=== PATIENT | female | born 1985 | race Asian ===

== ENCOUNTER 2017-07-29 20:40 | Emergency (ER) | payer OTHER ==
[2017-07-29 21:08] LABS: URINE HCG POC HCG POSITIVE (Negative)
== END 2017-07-29 23:09 | disposition home or self-care (01) ==
LOC: ER 20:40
DX: Z32.01 Encounter for pregnancy test, result positive (principal); M25.562 Pain in left knee
CPT/HCPCS: 81025; 93971; 99284-25

== ENCOUNTER 2018-03-10 09:47 | Inpatient (IN) | payer OTHER ==
[~2018-03-10] VITALS: Ht 152.4 cm; Wt 87.5 kg
[~2018-03-10 09:47] MED LIST: PNV1TABL25 PO
[2018-03-10] MEDS ORDERED: IV RINGERS,LACTATED 1000ML 1,000 ML IV SCH (10:00)
[2018-03-10] MEDS ORDERED: ACETAMINOPHEN 325 MG TABLET. PO PRN ×2 (10:00→19:00)
[2018-03-10] MEDS ORDERED: ONDANSETRON PF 4 MG/2 ML VIAL. IV PRN (10:00)
[2018-03-10] MEDS ORDERED: MAG HYDROX/ALUMINUM HYD/SIMETH 30 ML ORAL.SUSP PO PRN ×3 (10:00→19:00)
[2018-03-10 10:36] LABS: BARBITURATES NEG (NEG); BENZODIAZEPINES NEG (NEG); CANNABINOIDS NEG (NEG); COCAINE NEG (NEG); METHADONE NEG (NEG); OPIATES NEG (NEG); PHENCYCLIDINE NEG (NEG)
[2018-03-10 10:40] LABS: AMPHETAMINE/METHAMPHETAMINE NEG (NEG)
[2018-03-10 10:49] LABS: BILIRUBIN,URINE NEGATIVE (NEG); CLARITY,URINE CLEAR; COLOR,URINE YELLOW; NITRITE,URINE NEGATIVE (NEG); PROTEIN,URINE NEGATIVE (NEG-TRACE); UROBILINOGEN,URINE 0.2 mg/dL (0.2 mg/dL)
[2018-03-10 11:03] LABS: BACTERIA,URINE FEW /HPF (0-FEW); RBC,URINE 0 /HPF (0-2); SQUAMOUS EPITHELIAL CELL,UR MOD /LPF; WBC,URINE 0 /HPF (0-4)
[2018-03-10 11:29] LABS: BASO % 0 % (0-3); EOS # 0.1 x10^3/uL (0.0-0.7); EOS % 1 % (0-3); HEMATOCRIT 39.9 % (36.0-47.0); HEMOGLOBIN 13.4 g/dL (12.0-15.5); LYMPH # 1.7 x10^3/uL (1.0-4.8); LYMPH % 18 % (24-48); MEAN CORPUSCULAR HEMOGLOBIN 29 pg (25-35); MEAN CORPUSCULAR HGB CONC 34 g/dL (31-37); MEAN CORPUSCULAR VOLUME 87 fL (79-100); MONO # 0.8 x10^3/uL (0.0-1.1); MONO % 9 % (0-9); NEUT # 6.8 x10^3uL (1.8-7.7); NEUT % 72 % (31-73); PLATELET COUNT 258 x10^3/uL (140-400); WHITE BLOOD COUNT 9.4 x10^3/uL (4.0-11.0)
[2018-03-10 11:47] LABS: CREATININE 0.5 mg/dL (0.6-1.0); GFR 143.9; POTASSIUM 3.4 mmol/L (3.5-5.1)
[2018-03-10 11:53] LABS: ALBUMIN 2.3 g/dL (3.4-5.0); ALBUMIN/GLOBULIN RATIO 0.5 (1.0-1.7); TOTAL BILIRUBIN 0.4 mg/dL (0.2-1.0); TOTAL PROTEIN 6.8 g/dL (6.4-8.2); URIC ACID 4.9 mg/dL (2.6-6.0)
[2018-03-10] MEDS ORDERED: OXYTOCIN 30 UNIT/500 ML PREMIX 500 ML IV PRN ×2 (15:45→19:00)
[2018-03-10] MEDS ORDERED: AMPICILLIN SODIUM 2 GM in IV NORMAL SALINE 100ML 100 ML IV ONE (16:00)
[2018-03-10] MEDS ORDERED: 0.9 % SODIUM CHLORIDE 10 ML DISP.SYRIN. IV PRN ×2 (16:15→19:00)
[2018-03-10] MEDS ORDERED: CITRIC ACID/SODIUM CITRATE 30 ML SOLUTION. PO PRN (16:15)
[2018-03-10] MEDS ORDERED: BUTORPHANOL 2 MG/ML VIAL. IV PRN ×2 (16:15)
[2018-03-10] MEDS ORDERED: fentaNYL PF VIAL 100 MCG/2 ML VIAL IV PRN ×2 (16:15)
[2018-03-10] MEDS ORDERED: LIDOCAINE 1% PF 30 ML VIAL. INJ PRN (16:15)
[2018-03-10] MEDS ORDERED: TERBUTALINE 1 MG/ML VIAL. SQ PRN (16:15)
[2018-03-10] MEDS: IV RINGERS,LACTATED 1000ML 1,000 ML IV SCH (17:00)
--- NOTE | 2018-03-10 18:52 | PDOC1 ---
OB - History Hx of Present Ultrasounds: Normal mid trimester US Obstetrical Complications: None, Other (Previous C/C) Medical Complications: None Past Family/Social History * Past Medical, Surgical, Family and Obstetric Histories reviewed from chart. Blood Type: A+ Rubella: Immune GBS Status: Positive HBsAG: Negative OB - Chief Complaint & HPI Date of Admission: Date of Admission: Mar 10, 2018 at 09:47 Chief Complaint/History : 6 Para: 4 EDC: Mar 18, 2018 Reason for admission: active labor OB - Admission Exam Physical Exam Vitals: VS - Last 72 Hours, by Label Date Time Temp Pulse Resp B/P (MAP) Pulse Ox O2 Delivery O2 Flow Rate FiO2 03/10/18 17:27 Room Air HEENT: Normal, Nasal Mucosa Normal, Oropharynx Normal, Moist Membranes, Fontanelles Normal Heart: Regular Rate Lungs: Clear, Equal Abdomen: Gravid Extremities: Normal Pulses, No tenderness or swelling Reflexes: Normal Cervical Dilatation: 3cm Effacement: 50% Station: Ballotable Membranes: Intact Amniotic Fluid: Clear Heart Rate: Normal Accelerations: Accelerations Present Contractions on Admission: < 5 Minutes Apart Intensity: Moderate Assessment/Plan Assessment/Plan [facility] BRANDEN MCKEON MD Mar 10, 2018 18:52
--- NOTE | 2018-03-10 18:54 | PDOC ---
VAGINAL DELIVERY DATE DATE: 03/10/18 TIME: 18:52 : 6 Para: 4 EDC: Mar 18, 2018 PLACENTA: Spontaneous SEX: Male WEIGHT 6/8 Nuchal Cord: Yes, Times 1, Times 2, Tight Amniotic Fluid: Clear PAIN: Natural EPISIOTOMY: No EXTENSION: No EBL 300cc COMPLICATIONS None CONDITION Stable Signs of Intrauterine Infectio: None Shoulder Dystocia: No DIAGNOSIS [facility] BRANDEN Terry MD Mar 10, 2018 18:54
[2018-03-10] MEDS ORDERED: HYDROCORTISONE 1% TOPICAL OINTMENT 30GM TUBE. TP PRN (19:00)
[2018-03-10] MEDS ORDERED: MAGNESIUM HYDROXIDE 2,400 MG/30 ML ORAL.SUSP. PO PRN (19:00)
[2018-03-10] MEDS ORDERED: HYDROcodone/APAP 5/325MG 1 TAB TABLET PO PRN ×2 (19:00)
[2018-03-10] MEDS ORDERED: diphenhydrAMINE HCL 25 MG CAPSULE PO PRN (19:00)
[2018-03-10] MEDS ORDERED: SIMETHICONE 80 MG TAB.CHEW PO PRN (19:00)
[2018-03-10] MEDS ORDERED: PHENYLEPH/MINERAL OIL/PETROLAT RECTAL OINTMENT 28GM TUBE. RC PRN (19:00)
[2018-03-10] MEDS ORDERED: BENZOCAINE 20% TOPICAL AEROSOL SPRAY 57GM CAN. TP PRN (19:00)
[2018-03-10] MEDS ORDERED: ZOLPIDEM 5 MG TABLET. PO PRN (19:00)
[2018-03-10] MEDS: AMPICILLIN SODIUM 1 GM in IV NORMAL SALINE 50ML 50 ML IV SCH (20:00)
[2018-03-10] MEDS: IBUPROFEN 800 MG TABLET. PO PRN (20:49)
[2018-03-10 21:11] LABS: UR PROTEIN RD <4.0 mg/dL (Not Estab.)
[2018-03-10 21:30] VITALS: BP 129/91
[2018-03-10 23:16] VITALS: BP 139/93
[2018-03-11] MEDS: IV RINGERS,LACTATED 1000ML 1,000 ML IV SCH ×3 (01:00→17:00)
[2018-03-11] MEDS: AMPICILLIN SODIUM 1 GM in IV NORMAL SALINE 50ML 50 ML IV SCH ×7 (04:00→20:00)
[2018-03-11 06:29] VITALS: BP 105/69
[2018-03-11] MEDS ORDERED: FERROUS SULFATE 325 MG TABLET. PO SCH (08:00)
--- NOTE | 2018-03-11 08:31 | PDOC ---
OB Progress Note Date of Service 03/11/18 Time of Evaluation 0830 Notes Pt. feeling well. No complaints. Lab Laboratory Tests Test 03/10/18 10:05 03/10/18 10:45 03/11/18 04:15 Urine Collection Type Unknown Urine Color Yellow Urine Clarity Clear Urine pH 7.0 Urine Specific [place] <=1.005 Urine Protein <4.0 mg/dL (Not Estab.) Urine Glucose (UA) Negative mg/dL (NEG) Urine Ketones (Stick) Negative mg/dL (NEG) Urine Blood Small (NEG) Urine Nitrite Negative (NEG) Urine Bilirubin Negative (NEG) Urine Urobilinogen Dipstick 0.2 mg/dL (0.2 mg/dL) Urine Leukocyte Esterase Negative (NEG) Urine RBC 0 /HPF (0-2) Urine WBC 0 /HPF (0-4) Urine Squamous Epithelial Cells Mod /LPF Urine Bacteria Few /HPF (0-FEW) Urine Creatinine 13.6 mg/dL (Not Estab.) Urine Protein/Creatinine Ratio Comment mg/g creat (0-200) Urine Opiates Screen Neg (NEG) Urine Methadone Screen Neg (NEG) Urine Barbiturates Neg (NEG) Urine Phencyclidine Screen Neg (NEG) Urine Amphetamine/Methamphetamine Neg (NEG) Urine Benzodiazepines Screen Neg (NEG) Urine Cocaine Screen Neg (NEG) Urine Cannabinoids Screen Neg (NEG) Urine Ethyl Alcohol (NEG) White Blood Count 9.4 x10^3/uL (4.0-11.0) Red Blood Count 4.60 x10^6/uL (3.50-5.40) Hemoglobin 13.4 g/dL (12.0-15.5) Hematocrit 39.9 % (36.0-47.0) 36.5 % (36.0-47.0) Mean Corpuscular Volume 87 fL (79-100) Mean Corpuscular Hemoglobin 29 pg (25-35) Mean Corpuscular Hemoglobin Concent 34 g/dL (31-37) Red Cell Distribution Width 15.0 % (11.5-14.5) Platelet Count 258 x10^3/uL (140-400) Neutrophils (%) (Auto) 72 % (31-73) Lymphocytes (%) (Auto) 18 % (24-48) Monocytes (%) (Auto) 9 % (0-9) Eosinophils (%) (Auto) 1 % (0-3) Basophils (%) (Auto) 0 % (0-3) Neutrophils # (Auto) 6.8 x10^3uL (1.8-7.7) Lymphocytes # (Auto) 1.7 x10^3/uL (1.0-4.8) Monocytes # (Auto) 0.8 x10^3/uL (0.0-1.1) Eosinophils # (Auto) 0.1 x10^3/uL (0.0-0.7) Basophils # (Auto) 0.0 x10^3/uL (0.0-0.2) Sodium Level 138 mmol/L (136-145) Potassium Level 3.4 mmol/L (3.5-5.1) Chloride Level 103 mmol/L (98-107) Carbon Dioxide Level 24 mmol/L (21-32) Anion Gap 11 (6-14) Blood Urea Nitrogen 4 mg/dL (7-20) Creatinine 0.5 mg/dL (0.6-1.0) Estimated GFR (Cockcroft-Gault) 143.9 BUN/Creatinine Ratio 8 (6-20) Glucose Level 90 mg/dL (70-99) Uric Acid 4.9 mg/dL (2.6-6.0) Calcium Level 9.0 mg/dL (8.5-10.1) Total Bilirubin 0.4 mg/dL (0.2-1.0) Aspartate Amino Transf (AST/SGOT) 15 U/L (15-37) Alanine Aminotransferase (ALT/SGPT) 18 U/L (14-59) Alkaline Phosphatase 107 U/L (46-116) Total Protein 6.8 g/dL (6.4-8.2) Albumin 2.3 g/dL (3.4-5.0) Albumin/Globulin Ratio 0.5 (1.0-1.7) Laboratory Tests Test 03/10/18 10:05 03/10/18 10:45 03/11/18 04:15 Urine Collection Type Unknown Urine Color Yellow Urine Clarity Clear Urine pH 7.0 Urine Specific [place] <=1.005 Urine Protein <4.0 mg/dL (Not Estab.) Urine Glucose (UA) Negative mg/dL (NEG) Urine Ketones (Stick) Negative mg/dL (NEG) Urine Blood Small (NEG) Urine Nitrite Negative (NEG) Urine Bilirubin Negative (NEG) Urine Urobilinogen Dipstick 0.2 mg/dL (0.2 mg/dL) Urine Leukocyte Esterase Negative (NEG) Urine RBC 0 /HPF (0-2) Urine WBC 0 /HPF (0-4) Urine Squamous Epithelial Cells Mod /LPF Urine Bacteria Few /HPF (0-FEW) Urine Creatinine 13.6 mg/dL (Not Estab.) Urine Protein/Creatinine Ratio Comment mg/g creat (0-200) Urine Opiates Screen Neg (NEG) Urine Methadone Screen Neg (NEG) Urine Barbiturates Neg (NEG) Urine Phencyclidine Screen Neg (NEG) Urine Amphetamine/Methamphetamine Neg (NEG) Urine Benzodiazepines Screen Neg (NEG) Urine Cocaine Screen Neg (NEG) Urine Cannabinoids Screen Neg (NEG) Urine Ethyl Alcohol (NEG) White Blood Count 9.4 x10^3/uL (4.0-11.0) Red Blood Count 4.60 x10^6/uL (3.50-5.40) Hemoglobin 13.4 g/dL (12.0-15.5) Hematocrit 39.9 % (36.0-47.0) 36.5 % (36.0-47.0) Mean Corpuscular Volume 87 fL (79-100) Mean Corpuscular Hemoglobin 29 pg (25-35) Mean Corpuscular Hemoglobin Concent 34 g/dL (31-37) Red Cell Distribution Width 15.0 % (11.5-14.5) Platelet Count 258 x10^3/uL (140-400) Neutrophils (%) (Auto) 72 % (31-73) Lymphocytes (%) (Auto) 18 % (24-48) Monocytes (%) (Auto) 9 % (0-9) Eosinophils (%) (Auto) 1 % (0-3) Basophils (%) (Auto) 0 % (0-3) Neutrophils # (Auto) 6.8 x10^3uL (1.8-7.7) Lymphocytes # (Auto) 1.7 x10^3/uL (1.0-4.8) Monocytes # (Auto) 0.8 x10^3/uL (0.0-1.1) Eosinophils # (Auto) 0.1 x10^3/uL (0.0-0.7) Basophils # (Auto) 0.0 x10^3/uL (0.0-0.2) Sodium Level 138 mmol/L (136-145) Potassium Level 3.4 mmol/L (3.5-5.1) Chloride Level 103 mmol/L (98-107) Carbon Dioxide Level 24 mmol/L (21-32) Anion Gap 11 (6-14) Blood Urea Nitrogen 4 mg/dL (7-20) Creatinine 0.5 mg/dL (0.6-1.0) Estimated GFR (Cockcroft-Gault) 143.9 BUN/Creatinine Ratio 8 (6-20) Glucose Level 90 mg/dL (70-99) Uric Acid 4.9 mg/dL (2.6-6.0) Calcium Level 9.0 mg/dL (8.5-10.1) Total Bilirubin 0.4 mg/dL (0.2-1.0) Aspartate Amino Transf (AST/SGOT) 15 U/L (15-37) Alanine Aminotransferase (ALT/SGPT) 18 U/L (14-59) Alkaline Phosphatase 107 U/L (46-116) Total Protein 6.8 g/dL (6.4-8.2) Albumin 2.3 g/dL (3.4-5.0) Albumin/Globulin Ratio 0.5 (1.0-1.7) Medications Current Medications Ringer's Solution 1,000 ml @ 125 mls/hr Q8H IV Last administered on 03/10/18at 11:02; Start 03/10/18 at 10:00 Acetaminophen (Tylenol) 650 mg PRN Q6HRS PRN PO PAIN, TEMP > 100.5'F Last administered on 03/10/18at 10:37; Start 03/10/18 at 10:00; Stop 03/10/18 at 19:04 ; Status DC Al Hydroxide/Mg Hydroxide (Mylanta Plus Xs) 15 ml PRN Q4HRS PRN PO HEARTBURN / GAS; Start 03/10/18 at 10:00; Status Cancel Ondansetron HCl (Zofran) 4 mg PRN Q6HRS PRN IV NAUSEA; Start 03/10/18 at 10:00 Ampicillin Sodium 2 gm/Sodium Chloride 100 ml @ 200 mls/hr 1X ONCE IV Last administered on 03/10/18at 15:49; Start 03/10/18 at 16:00; Stop 03/10/18 at 16:29 ; Status DC Ampicillin Sodium 1 gm/Sodium Chloride 50 ml @ 100 mls/hr Q4HRS IV ; Start at 20:00 Oxytocin/Sodium Chloride 500 ml @ 0 mls/hr CONT PRN IV SEE I/O RECORD Last administered on 03/10/18at 15:50; Start 03/10/18 at 15:45 Sodium Chloride (Normal Saline Flush) 3 ml QSHIFT PRN IV AFTER MEDS AND BLOOD DRAWS; Start 03/10/18 at 16:15 Ringer's Solution 1,000 ml @ 125 mls/hr Q8H IV ; Start 03/10/18 at 17:00 Butorphanol Tartrate (Stadol) 1 mg PRN Q1HR PRN IV mild to moderate labor pain Last administered on 03/10/18at 17:27; Start 03/10/18 at 16:15 Butorphanol Tartrate (Stadol) 2 mg PRN Q1HR PRN IV Severe labor pain; Start at 16:15 Fentanyl Citrate (Fentanyl 2ml Vial) 50 mcg PRN Q30MIN PRN IV Mild to moderate pain; Start 03/10/18 at 16:15 Fentanyl Citrate (Fentanyl 2ml Vial) 100 mcg PRN Q30MIN PRN IV Severe pain; Start 03/10/18 at 16:15 Al Hydroxide/Mg Hydroxide (Mylanta Plus Xs) 30 ml PRN Q4HRS PRN PO HEARTBURN / GAS; Start 03/10/18 at 16:15 Citric Acid/ Sodium Citrate (Bicitra) 30 ml 1X PRN PRN PO DYSPEPSIA; Start at 16:15; Stop 03/11/18 at 16:14 Terbutaline Sulfate (Brethine) 0.25 mg 1X PRN PRN SQ SEE COMMENTS; Start at 16:15; Stop 03/11/18 at 16:14 Lidocaine HCl (Xylocaine 1% Pf 30ml Vial) 30 ml 1X PRN PRN INJ SEE COMMENTS; Start 03/10/18 at 16:15; Stop 03/12/18 at 16:14 Sodium Chloride (Normal Saline Flush) 10 ml QSHIFT PRN IV AFTER MEDS AND BLOOD DRAWS; Start 03/10/18 at 19:00 Oxytocin/Sodium Chloride 500 ml @ 62.5 mls/hr CONT PRN IV SEE I/O RECORD; Start 03/10/18 at 19:00; Stop 03/11/18 at 02:59; Status DC Acetaminophen (Tylenol) 650 mg PRN Q6HRS PRN PO MILD PAIN / TEMP; Start at 19:00 Ibuprofen (Motrin) 800 mg PRN Q8HRS PRN PO INFLAMMATION, PAIN PREVENTION Last administered on 03/10/18at 20:49; Start 03/10/18 at 19:00 Magnesium Hydroxide (Milk Of Magnesia) 2,400 mg PRN DAILY PRN PO CONSTIPATION; Start 03/10/18 at 19:00 Al Hydroxide/Mg Hydroxide (Mylanta Plus Xs) 30 ml PRN Q4HRS PRN PO HEARTBURN / GAS; Start 03/10/18 at 19:00; Stop 03/10/18 at 19:05; Status DC Simethicone (Gas-X) 80 mg PRN AFTMEALHC PRN PO GAS / BLOATING; Start 03/10/18 at 19:00 Diphenhydramine HCl (Benadryl) 25 mg PRN Q6HRS PRN PO ITCHING; Start 03/10/18 at 19:00 Benzocaine (Americaine) 1 spray PRN QID PRN TP TOPICAL PAIN Last administered on 03/10/18at 20:50; Start 03/10/18 at 19:00 Phenyleph/Shark Oil/Min Oil/Petrol (Preparation H) 1 cha PRN QID PRN RC RECTAL PAIN; Start 03/10/18 at 19:00 Hydrocortisone (Cortaid) 1 cha PRN QID PRN TP PERINEAL PAIN; Start 03/10/18 at 19:00 Ferrous Sulfate (Feosol) 325 mg BIDWMEALS PO ; Start 03/11/18 at 08:00; Stop at 08:00; Status DC Zolpidem Tartrate (Ambien) 5 mg PRN QHS PRN PO INSOMNIA, MAY REPEAT X1; Start 03/10/18 at 19:00 Info (Do NOT chart on this placeholder) 1 ea 1X PRN PRN MC SEE COMMENTS; Start 03/10/18 at 19:00 Acetaminophen/ Hydrocodone Bitart (Lortab 5/325) 1 tab PRN Q4HRS PRN PO MILD PAIN; Start 03/10/18 at 19:00 Acetaminophen/ Hydrocodone Bitart (Lortab 5/325) 2 tab PRN Q4HRS PRN PO MODERATE PAIN, SEVERE PAIN; Start 03/10/18 at 19:00 Active Scripts Active Tablet (Pnv Cmb#95/Ferrous Fumarate/Fa) 1 Each Tablet 1 Tab PO DAILY Exam Abd: soft, non tender, fundus firm Assessment PPD# 1 s/p Plan of Care: Continue current Tx, Mgmt THOMAS PFEIFFER Jr, MD Mar 11, 2018 08:31
[2018-03-11 10:00] VITALS: BP 121/89
[2018-03-11] MEDS ORDERED: DOCUSATE SODIUM 100 MG CAPSULE. PO PRN (11:45)
[2018-03-11] MEDS: IBUPROFEN 800 MG TABLET. PO PRN (17:35)
[2018-03-11 17:49] VITALS: BP 140/103
[2018-03-12 00:20] VITALS: BP 136/97
[2018-03-12 06:15] VITALS: BP 116/78
[2018-03-12 11:00] VITALS: BP 118/102
--- NOTE | 2018-03-12 15:55 | PDOC3 ---
Admit Date: 03/10/18 D/c Date: 03/12/18 Admit Dx: Term gestation D/c Dx: Same Procedure: Surgeon: Dr. Deleon [facility] Course: Term gestation presented in labor. She delivered without complications D/c Diet: regular D/c Instructions: pelvic rest x 6 weeks F/u in 2 wks. THOMAS PFEIFFER Jr, MD Mar 12, 2018 15:55
--- NOTE | 2018-03-12 15:56 | DISCH ---
DISCHARGE INSTRUCTIONS Condition on Discharge Condition on Discharge: Stable Activity After Discharge Activity Instructions for Disc: Activity as tolerated Lifting Instructions after Dis: No heavy lifting Driving Instructions after Dis: Do not drive today Diet after Discharge Diet after Discharge: Regular Contacting the DRReyna after DC Call your doctor for: Concerns you may have Follow-Up Follow up with: Dr. Deleon in 2 wks. THOMAS PFEIFFER Jr, MD Mar 12, 2018 15:56
[2018-03-12] MEDS ORDERED: NAPR-683 PO (15:58)
[2018-03-12] MEDS ORDERED: HYDR-2758 PO (15:58)
[2018-03-12 16:00] VITALS: BP 110/88
== END 2018-03-12 16:50 | disposition home or self-care (01) | DRG 775 ==
LOC: 3 SO LND 09:47 → OBSVTOIN 16:06 → 3 NORTH 21:15
PROVIDERS: ADMIT Specialist; ATTEND Specialist
PROC: 10E0XZZ Delivery of Products of Conception, External Approach (ICD-10-PCS; principal; 2018-03-10)
DX: O99.824 Streptococcus B carrier state complicating childbirth (principal); O69.81X0 Labor and delivery complicated by cord around neck, without compression, not applicable or unspecified; Z37.0 Single live birth; Z3A.00 Weeks of gestation of pregnancy not specified; O34.219 Maternal care for unspecified type scar from previous cesarean delivery
CPT/HCPCS: 36415; 80053; 80307; 81001; 82570; 84156; 84550; 85014; 85025; 86850; 86900; 86901; G0378; G0379; J0290; J2590; J7120; G0479